=== PATIENT | female | born 1975 | race Caucasian/White ===

== ENCOUNTER 2016-11-28 09:37 | Outpatient (CLI) | payer OTHER | END 2016-11-28 09:38 | disposition home or self-care (01) | DX: Z00.00 Encounter for general adult medical examination without abnormal findings (principal) ==

== ENCOUNTER 2016-12-12 12:00 | Outpatient (CLI) | payer OTHER | END 2016-12-12 12:01 | disposition home or self-care (01) | DX: Z12.31 Encounter for screening mammogram for malignant neoplasm of breast (principal) ==

== ENCOUNTER 2017-02-01 14:38 | Outpatient (CLI) | payer OTHER | END 2017-02-01 14:39 | disposition home or self-care (01) | DX: R10.13 Epigastric pain (principal) ==

== ENCOUNTER 2017-02-03 23:26 | Observation (INO) | payer OTHER ==
[2017-02-03] MEDS ORDERED: MAG HYDROX/AL HYDROX/SIMETH 30 ML UDC PO STA (23:42)
[2017-02-03] MEDS ORDERED: LIDOCAINE VISCOUS 2% 15 ML UDC MM STA (23:42)
--- NOTE | 2017-02-03 23:44 | ED Physician Documentation ---
PD HPI ABD PAIN - Stated complaint Stated Complaint: ABD/SHOULDER PX - Chief complaint Chief Complaint: Abd Pain - History obtained from History obtained from: Patient - History of Present Illness Timing - onset: How many weeks ago (1) Timing - details: Gradual onset, Still present Quality: Sharp, Stabbing Location: RUQ, Epigastric Radiation: Right shoulder, Upper back Worsened by: Eating Associated symptoms: No: Fever, Nausea, Vomiting, Diarrhea, Constipation Similar symptoms before: Work up / diagnostics Recently seen: Clinic - Additional information Additional information: Patient is a 41 year old female with a history of muscle spasms who is presenting to the emergency department for epigastric pain. patient states that it has been going on for the last week. It gets worse after eating and is in her right upper quadrant and epigastric region. Patient's pmd thought it was an ulcer and started her on ranitidine and scheduled a follow up ultrasound for monday. patient stated that the pain was getting worse and she could not wait that long so she came in for evaluation. Review of Systems Constitutional: reports: Chills. denies: Fever Eyes: denies: Loss of vision, Decreased vision Ears: denies: Ear pain, Drainage/discharge Nose: denies: Rhinorrhea / runny nose, Congestion Throat: denies: Dental pain / toothache Cardiac: denies: Chest pain / pressure, Palpitations GI: reports: Abdominal Pain, Nausea. denies: Vomiting, Constipation, Diarrhea : denies: Dysuria, Frequency, Hesitancy Skin: denies: Rash, Lesions Musculoskeletal: reports: Back pain. denies: Neck pain, Extremity pain Neurologic: denies: Focal weakness, Numbness, Difficulty speaking Immunocompromised: denies: Immunocompromised PD PAST MEDICAL HISTORY - Past Medical History CHEMISTRY ASSOCIATE: Ovarian cysts - Present Medications Home Medications: Ambulatory Orders Medication Instructions Recorded Confirmed HYDROcod/ACETAM 5/325 [Vicodin 1 - 2 ea PO Q6H PRN #15 tablet 10/29/15 5/325] medroxyPROGESTERone [Depo-Provera] 150 mg IM ONCE 10/29/15 10/29/15 - Allergies Allergies/Adverse Reactions: Allergies Allergy/AdvReac Type Severity Reaction Status Date / Time No Known Drug Allergies Allergy Verified 02/04/17 00:26 - Social History Does the pt smoke?: Yes Smoking Status: Current every day smoker PD ED PE NORMAL - Vitals Vital signs reviewed: Yes - General General: Alert and oriented X 3, Well developed/nourished - HEENT HEENT: Atraumatic, PERRL - Neck Neck: Supple, no meningeal sign, No JVD - Cardiac Cardiac: RRR, No murmur - Respiratory Respiratory: No respiratory distress - Derm Derm: Normal color, Warm and dry, No rash - Extremities Extremities: No deformity, No tenderness to palpate, No edema - Neuro Neuro: Alert and oriented X 3, hoop rolls operator 2-12 intact, No motor deficit, No sensory deficit - Psych Psych: Normal mood, Normal affect PD ED PE EXPANDED - Abdomen Abdomen: Tender to palpation, Guarding, RUQ, Epigastric. No: Rebound - Back Back: Soft tissue tenderness (tenderness to palpation of right thoracic paraspinal muscles) Results - Vitals Vitals: Vital Signs - 24 hr 02/03/17 02/04/17 23:35 00:50 Temperature 37.2 C 36.7 C Heart Rate 72 74 Respiratory 18 16 Rate Blood Pressure 136/90 H 137/89 H O2 Saturation 100 100 Oxygen O2 Source Room air - Labs Labs: Laboratory Tests 02/04/17 02/04/17 00:00 00:00 WBC 13.3 H RBC 4.16 L Hgb 13.2 Hct 37.6 MCV 90.5 MCH 31.6 H MCHC 35.0 RDW 13.2 Plt Count 271 MPV 7.9 Neut # 7.3 H Lymph # 4.8 H Haakon # 0.9 Eos # 0.3 Baso # 0.1 Absolute Nucleated RBC 0.00 Nucleated RBCs 0.0 Sodium 136 Potassium 3.4 L Chloride 104 Carbon Dioxide 25 Anion Gap 7.0 BUN 14 Creatinine 0.8 Estimated GFR (MDRD) 79 L Glucose 103 H Calcium 9.1 Total Bilirubin 0.7 AST 19 ALT 26 Alkaline Phosphatase 39 L Total Protein 6.8 Albumin 4.1 Globulin 2.7 Albumin/Globulin Ratio 1.5 Lipase 19 L - Rads (name of study) abdominal ultrasound Radiology: Final report received (multiple stones, wall thickening at 10.7mm) PD MEDICAL DECISION MAKING - ED course Complexity details: reviewed results, re-evaluated patient, considered differential, d/w patient, d/w web development consultant ED course: Patient was seen and examined at bedside. labs were drawn and urine was collected. Patient was treated with viscous lidocaine and maalox. Patient was sent for imaging. When patient returned the results were reviewed. IV access was gained and patient was treated with morphine and ns bolus. crew caller surgeon , Dr. Andrade was contacted and the case was discussed with her. she requested zosyn and to place the patient under her service to go to the OR tomorrow. Patient responded well to the therapy and was admitted to the hosptial pain free in stable condition. Departure - Departure Disposition: ED Place in Observation Clinical Impression: Cholecystitis Condition: Good
[2017-02-03] MEDS ORDERED: LIDOCAINE VISCOUS 2% 15 ML UDC MM ONE (23:45)
[2017-02-03] MEDS ORDERED: MAG HYDROX/AL HYDROX/SIMETH 30 ML UDC ONE (23:45)
[2017-02-04 00:08] LABS: BASOPHILS # (AUTO) 0.1 10^3/uL (0.0-0.1); HGB - HEMOGLOBIN 13.2 g/dL (12.0-16.0); MONOCYTES # (AUTO) 0.9 10^3/uL (0.0-1.0); NEUTROPHILS # (AUTO) 7.3 10^3/uL (1.5-6.6); RED CELL DISTRIBUTION WIDTH 13.2 % (12.0-15.0)
[2017-02-04 00:10] LABS: BASOPHILS % (AUTO) 0.5 %; EOSINOPHILS # (AUTO) 0.3 10^3/uL (0.0-0.7); EOSINOPHILS % (AUTO) 1.9 %; HCT - HEMATOCRIT 37.6 % (37.0-47.0); LYMPHOCYTES # (AUTO) 4.8 10^3/uL (1.5-3.5); LYMPHOCYTES % (AUTO) 36.5 %; MEAN CORPUSCULAR HEMOGLOBIN 31.6 pg (27.0-31.0); MEAN CORPUSCULAR VOLUME 90.5 fL (81.0-99.0); MEAN PLATELET VOLUME 7.9 fL (7.9-10.8); MONOCYTES % (AUTO) 6.4 %; NEUTROPHILS % (AUTO) 54.7 %; RED BLOOD COUNT 4.16 10^6/uL (4.20-5.40); UNCORRECTED WHITE BLOOD COUNT 13.3 x10^3/uL; WHITE BLOOD COUNT 13.3 x10^3/uL (4.8-10.8)
[2017-02-04 00:34] LABS: ALBUMIN/GLOBULIN RATIO 1.5 (1.0-2.2); BILIRUBIN,TOTAL 0.7 mg/dL (0.2-1.0); CALCIUM 9.1 mg/dL (8.5-10.3); CREATININE 0.8 mg/dL (0.4-1.0); POTASSIUM 3.4 mmol/L (3.5-5.0); TOTAL PROTEIN 6.8 g/dL (6.7-8.2)
[2017-02-04] MEDS ORDERED: SODIUM CHLORIDE 0.9% 1,000 ML IV ONE ×2 (01:26→01:31)
[2017-02-04] MEDS ORDERED: MORPHINE 2 MG/ML SYRINGE IVP STA (01:26)
[2017-02-04] MEDS ORDERED: MORPHINE 2 MG/ML SYRINGE ONE (01:31)
--- NOTE | 2017-02-04 01:57 | Ultrasound Preliminary Report ---
Exam: US Abdomen Limited IMPRESSION: 1. Multiple stones in the gallbladder with wall thickening at 10.7 mm and focal gallbladder tendernes s. Findings may represent cholecystitis. 2. No biliary dilatation seen. 3. Possible fatty liver. [facility] SITE ID: [id number]
--- NOTE | 2017-02-04 01:59 | Ultrasound Report ---
EXAM: ABDOMEN ULTRASOUND LIMITED, RUQ EXAM DATE: 02/04/2017 01:20 AM. CLINICAL HISTORY: Right upper quadrant pain. COMPARISON: None. TECHNIQUE: Real-time scanning was performed with static images obtained. FINDINGS: Liver: Echogenic, possibly due to fatty infiltration. 14.9 cm. Main portal vein flow: Hepatopetal. Gallbladder: Multiple stones. Wall thickening measuring up to 10.7 mm. Tenderness over the gallbladde r. Biliary System: CBD measures 3.9 mm. No intrahepatic or extrahepatic ductal dilatation. Other: Right kidney measures 10.5 cm. No hydronephrosis is seen. IMPRESSION: 1. Multiple stones in the gallbladder with wall thickening at 10.7 mm and focal gallbladder tendernes s. Findings may represent cholecystitis. 2. No biliary dilatation seen. 3. Possible fatty liver. [facility] Referring Provider Line: [phone] SITE ID: [id number]
[2017-02-04] MEDS ORDERED: PIPERACILLIN/TAZOBACTAM 4.5 GM in SODIUM CHLORIDE 0.9% MINIBAG 100 ML IV STA (02:02)
[2017-02-04] MEDS ORDERED: ACETAMINOPHEN 325 MG TABLET PO PRN (02:05)
[2017-02-04] MEDS ORDERED: ONDANSETRON 4 MG/2 ML VIAL IVP PRN (02:05)
[2017-02-04] MEDS ORDERED: MORPHINE 2 MG/ML SYRINGE IVP PRN (02:05)
[2017-02-04] MEDS ORDERED: SODIUM CHLORIDE FLUSH 0.9% 10 ML SYRINGE IVP PRN (02:05)
[2017-02-04] MEDS ORDERED: SODIUM CHLORIDE 0.9% MINIBAG 100 ML IV ONE (02:11)
[2017-02-04] MEDS ORDERED: LACTATED RINGERS 1,000 ML IV SCH (03:00)
[2017-02-04 03:19] LABS: BILIRUBIN,URINE NEGATIVE (NEGATIVE)
[2017-02-04 03:35] LABS: UA w/ MICROSCOPIC CHARGE YES; UR CULTURE IF IND NOT INDICATED; WBC,URINE 0-3 /HPF (0-5)
[2017-02-04] MEDS: SODIUM CHLORIDE FLUSH 0.9% 10 ML SYRINGE IVP SCH ×2 (05:34→14:00)
[2017-02-04] MEDS ORDERED: AMPICILLIN/SULBACTAM 3 GM in SODIUM CHLORIDE 0.9% MINIBAG 100 ML IV SCH (06:00)
[2017-02-04] MEDS ORDERED: POLYETHYLENE GLYCOL 3350 17 GM PACKET PO SCH (09:00)
[2017-02-04] MEDS ORDERED: ACETAMINOPHEN/CODEINE 300 MG/30 MG TABLET PO PRN (10:31)
[2017-02-04 11:55] LABS: HCG UR QUAL NEGATIVE
[2017-02-04] MEDS ORDERED: LACTATED RINGERS 1,000 ML IV ONE ×4 (12:11→14:26)
[2017-02-04] MEDS ORDERED: BUPIVACAINE 0.5%-EPI 1:200000 PF 30 ML VIAL SUBQ ONE ×2 (12:45→13:33)
[2017-02-04] MEDS ORDERED: KETOROLAC 30 MG/ML VIAL IVP ONE (12:47)
[2017-02-04] MEDS ORDERED: ACETAMINOPHEN 1,000 MG/100 ML VIAL IV ONE (12:47)
[2017-02-04] MEDS ORDERED: MIDAZOLAM 2 MG/2 ML VIAL IVP ONE (12:47)
[2017-02-04] MEDS ORDERED: ONDANSETRON 4 MG/2 ML VIAL IVP ONE (12:47)
[2017-02-04] MEDS ORDERED: LIDOCAINE-MPF 2% 5 ML VIAL IM ONE (12:47)
[2017-02-04] MEDS ORDERED: PROPOFOL 200 MG/20 ML VIAL IVP ONE (12:47)
[2017-02-04] MEDS ORDERED: fentaNYL 100 MCG/2 ML VIAL IVP ONE (12:47)
[2017-02-04] MEDS ORDERED: DEXAMETHASONE 4 MG/ML VIAL IVP ONE (12:47)
[2017-02-04] MEDS ORDERED: NEOSTIGMINE 1 MG/1 ML 10 ML MDV IVP ONE (12:47)
[2017-02-04] MEDS ORDERED: GLYCOPYRROLATE 1 MG/5 ML VIAL IVP ONE (12:47)
[2017-02-04] MEDS ORDERED: SUCCINYLCHOLINE 200 MG/10 ML VIAL IVP ONE (12:47)
[2017-02-04] MEDS ORDERED: ROCURONIUM 50 MG/5 ML VIAL IVP ONE (12:47)
[2017-02-04] MEDS ORDERED: ONDANSETRON 4 MG/2 ML VIAL ONE (13:49)
[2017-02-04] MEDS: fentaNYL 100 MCG/2 ML VIAL ONE ×2 (13:49→14:23)
[2017-02-04] MEDS ORDERED: oxyCOD/ACETAMIN 5 MG/325 MG TABLET PO PRN (13:50)
[2017-02-04] MEDS: MIDAZOLAM 2 MG/2 ML VIAL ONE ×2 (13:53→14:24)
--- NOTE | 2017-02-04 14:01 | Discharge Plan ---
Discharge Plan Disposition: 01 Home, Self Care Condition: Good Diet: Regular Activity Restrictions: Activity as Tolerated Shower Restrictions: Yes (no shower for 24 hours) Driving Restrictions: Yes (not while on narcotics) Instruction Topics: Cholecystectomy Laparoscopic Dc No Smoking: If you smoke, Please STOP! Call for help. Follow-up with: Elvin Villar DO [Primary Care Provider] - KRYSTLE KEENAN MD [Provider Admit Priv/Credential] - 2 Weeks
[2017-02-04] MEDS ORDERED: HYDROmorphone 1 MG/ML SYRINGE ONE (14:19)
[2017-02-04 18:26] VITALS: BP 125/77
--- NOTE | 2017-02-05 02:09 | HISTORY & PHYSICAL EXAMINATION ---
DATE OF ADMISSION: 02/04/2017 REASON FOR ADMISSION: Acute cholecystitis. HISTORY OF PRESENT ILLNESS: This is a 41-year-old female who presented to the emergency department wi th a 1-week history of right upper quadrant and epigastric pain radiating to the back and shoulder. S he states that approximately 1 week ago, she was having mild symptoms and noticed that it was associa khari with food intake and nausea. These symptoms became increasingly worse. When she sought evaluation by her PCP on Monday, they prescribed a PPI and muscle relaxant, which she picked up on Monday, b ut this did not seem to help at all and the pain became much worse, causing her to present to the [facility] department. On evaluation in the emergency department, and an ultrasound of the abdomen was pe rformed, which demonstrated a thickened gallbladder wall and multiple stones within the gallbladder w ith a positive Rajan sign representing acute cholecystitis. There was no biliary dilatation seen. He r lab workup revealed a white blood cell count of 13.3 and normal LFTs and a normal lipase. She was a dmitted to the surgical service. PAST MEDICAL HISTORY: Ovarian cyst. PAST SURGICAL HISTORY: Laparoscopic removal of ovarian cyst. HOME MEDICATIONS: None. ALLERGIES TO MEDICATIONS: NO KNOWN DRUG ALLERGIES. SOCIAL HISTORY: The patient is . Her lives in [place] but is returning today. She smoke s 10 cigarettes per week and drinks 8-10 drinks per week. PHYSICAL EXAMINATION VITAL SIGNS: Temperature is 37.6, blood pressure 137/89, heart rate 74, respiratory rate 16, O2 is 10 0% on room air. GENERAL: The patient is awake, alert, oriented x3, in no acute distress. She is of average build with a BMI of 26. CARDIOVASCULAR: Regular rate and rhythm. CHEST: Clear to auscultation bilaterally with no rhonchi or wheezing. ABDOMEN: Soft and nondistended. She has slight tenderness to palpation in the right upper quadrant wi th no guarding or rigidity. EXTREMITIES: Nonedematous. LABORATORY VALUES: White blood cell count 13.3, hemoglobin 13.2, hematocrit 37.6, platelets 271. Sodi um 136, potassium 3.4, chloride 104, bicarbonate 25, BUN 14, creatinine 0.8, glucose 103, total bilir ubin 0.7, AST 19, ALT 26, alkaline phosphatase 39, lipase 19. ASSESSMENT: This is a 41-year-old female with acute cholecystitis. PLAN: The patient is admitted to the surgical service. She is placed on IV antibiotics including Unas yn. Her abdominal pain will be monitored, and if she shows improvement, she will go to the operating room for laparoscopic cholecystectomy. This procedure was explained to the patient in detail, includi ng the potential risks involved, including but not limited to bleeding, infection, and damage to intr aabdominal organs, specifically including the common bile duct. She understands all the above and agr ees to proceed. JOB #: [id number] EXT JOB #:[id number]
--- NOTE | 2017-02-05 02:20 | OPERATIVE REPORT ---
DATE OF SURGERY: 02/04/2017 00:00:00 PREOPERATIVE DIAGNOSIS: Acute cholecystitis. POSTOPERATIVE DIAGNOSIS: Acute cholecystitis. NAME OF PROCEDURE: Laparoscopic cholecystectomy, repair of umbilical hernia SURGEON: Blanche Andrade MD ANESTHESIOLOGIST: Neal Montoya CRNA INDICATION FOR PROCEDURE: This is a 41-year-old female who presented to the emergency department early this morning with right upper quadrant pain and ultrasonographic findings of acute cholecystitis. Her LFTs were noted to be normal. The patient was admitted to the surgical service and started on antibiotics and subsequently taken to the operating room for a laparoscopic cholecystectomy. FINDINGS: After obtaining informed consent from the patient, she was brought into the operating room and positioned on the operating table in the supine position, taking note of pressure points. She was intubated by Anesthesia. She was administered 2 grams of Ancef. SCD boots were applied. She was prepped and draped in the usual sterile fashion, and a time out was taken according to protocol. A 2 cm periumbilical incision was created and deepened down toward the umbilical stalk. A small umbilical hernia was noted. The umbilical sac was opened and its contents reduced. A very small umbilical opening was noted. A 5 mm port was inserted through this opening, and the abdominal cavity insufflated. A 5 mm incision was created in the epigastric region to the right of the midline and a 5 mm port inserted here. The umbilical port was then exchanged for a 12 mm port. Two additional 5 mm ports were then inserted in the patient's right lateral abdominal wall. The gallbladder was grasped and retracted over the dome of the liver. It was noted to be distended with a thickened wall. The base of the gallbladder was retracted medially, exposing the lateral attachments. These were carefully taken down with electrocautery, as the peritoneal attachments were quite thickened. I then worked my way medially, exposing the cystic duct. The cystic duct and artery were circumferentially dissected from fibrofatty tissue. A large Calot node was removed, as it was in the area of dissection. The critical view was then obtained. The cystic duct was clipped with 2 clips placed proximally, 1 distally , and divided. The cystic artery divided in a similar manner. The gallbladder was then removed off of the gallbladder fossa with electrocautery. The gallbladder attachments were noted to be quite friable, and there was some bleeding of the liver bed during this process. The gallbladder was placed in a specimen bag and removed through the umbilical port after having to extend it slightly. The Calot's node was also removed and sent off with the gallbladder as a specimen. The liver bed was inspected, and there was some bleeding in the liver bed. This was controlled with electrocautery. Suction irrigation was utilized to ensure that hemostasis had been achieved. The abdominal cavity was allowed to desufflate, and the ports were removed. The umbilical port site was closed with a running 0 Vicryl suture. The skin incisions were closed with 4-0 Monocryl. Then, 30 mL of local anesthetic was utilized. The patient was extubated and taken to recovery in stable condition. ESTIMATED BLOOD LOSS: 20 mL. SPECIMENS: Gallbladder and Calot node. COMPLICATIONS: None. JOB #: [id number] EXT JOB #:[id number] MTDD
== END 2017-02-04 18:25 | disposition home or self-care (01) ==
LOC: ED 23:26 → MS 02-04 02:05
PROVIDERS: ADMIT Surgery; ATTEND Surgery
PROC: 0FT44ZZ Resection of Gallbladder, Percutaneous Endoscopic Approach (ICD-10-PCS; principal; 2017-02-04 07:59)
DX: K80.10 Calculus of gallbladder with chronic cholecystitis without obstruction (principal); K42.9 Umbilical hernia without obstruction or gangrene; K21.9 Gastro-esophageal reflux disease without esophagitis; F17.200 Nicotine dependence, unspecified, uncomplicated; Z87.891 Personal history of nicotine dependence
CPT/HCPCS: 36415; 47562; 76705; 80053; 81001; 81025; 83690; 85025; 96361; 96365; 96375; 99234; 99283; 99285; A9270; J0131; J1170; J7120; 81003; 87086; 88304; 99284

== ENCOUNTER 2017-12-25 11:49 | Outpatient (CLI) | payer OTHER ==
--- NOTE | 2017-12-27 12:43 | Mammography Report ---
DIGITAL SCREENING MAMMOGRAM: CLINICAL INDICATION: A 42-year-old nulliparous patient, for screening. COMPARISON: 11/2016, 10/2015, 09/2014. TECHNIQUE: Routine CC and MLO projections were obtained of the breasts. Bilateral laterally exaggerated craniocaudal views. FINDINGS: Parenchymal tissue within both breasts is heterogeneously dense, which may lower the sensitivity of mammography; however, there are no dominant masses, suspicious microcalcifications, or secondary signs of malignancy. In comparison to the previous studies, there are no significant changes. ASSESSMENT: NO MAMMOGRAPHIC EVIDENCE OF MALIGNANCY. NO SIGNIFICANT INTERVAL CHANGES. RECOMMENDATION: Screening mammography is recommended annually. BIRADS category 1 - negative. STANDARD QUALIFYING STATEMENTS: 1. This examination was reviewed with the aid of Computed-Aided Detection (CAD). 2. A negative or benign imaging report should not delay biopsy if clinically suspicious findings are present. Consider surgical consultation if warranted. More than 5% of cancers are not identified by imaging. 3. Dense breasts may obscure an underlying neoplasm. TD: 12/27/2017 12:42
== END 2017-12-25 11:50 | disposition home or self-care (01) ==
LOC: DI.N 11:49
PROVIDERS: ATTEND Family Medicine
DX: Z12.31 Encounter for screening mammogram for malignant neoplasm of breast (principal)
CPT/HCPCS: 77067

== ENCOUNTER 2019-01-22 11:34 | Outpatient (CLI) | payer OTHER ==
--- NOTE | 2019-01-23 09:28 | Mammography Report ---
Reason: PT CALLED TO CANCEL STATING HER INS ISN'T COVERING Procedure Date: 01/22/2019 Accession Number: [id number] / [id number] Procedure: MGN - Screening Mammo Dig Bilat CPT Code: FULL RESULT: EXAM: Screening Mammo Dig Bilat DATE: 01/22/2019 11:59 AM CLINICAL HISTORY: Screening encounter. History of nulliparity. Family history of breast cancer in a paternal aunt at the age of 45. TECHNIQUE: (B) - Bilateral CC, laterally exaggerated CC, MLO views were obtained. COMPARISON: 12/25/2017 through 10/14/2014. PARENCHYMAL PATTERN: (D) - The breast(s) demonstrate(s) heterogeneously dense fibroglandular parenchyma. FINDINGS: There are no suspicious masses, calcifications, or areas of distortion. IMPRESSION: Negative examination. BI-RADS category 1. RECOMMENDATION: (ANNUAL) - Recommend routine annual screening mammography. BI-RADS CATEGORY: (1) - Negative. STANDARD QUALIFYING STATEMENTS: 1. This examination was not reviewed with the aid of Computer-Aided Detection (CAD). 2. A negative or benign imaging report should not preclude biopsy if clinically suspicious findings are present. 3. Dense breasts may obscure an underlying neoplasm. 4. This examination was reviewed without the aid of 3D breast imaging (tomosynthesis).
== END 2019-01-22 11:35 | disposition home or self-care (01) ==
LOC: DI.N 11:34
DX: Z12.31 Encounter for screening mammogram for malignant neoplasm of breast (principal); Z80.3 Family history of malignant neoplasm of breast
CPT/HCPCS: 77067

== ENCOUNTER 2019-01-25 08:00 | Outpatient (CLI) | payer OTHER ==
[2019-01-25 12:31] LABS: BASOPHILS % (AUTO) 0.6 %; EOSINOPHILS # (AUTO) 0.2 10^3/uL (0.0-0.7); EOSINOPHILS % (AUTO) 2.4 %; HGB - HEMOGLOBIN 13.4 g/dL (12.0-16.0); LYMPHOCYTES # (AUTO) 2.1 10^3/uL (1.5-3.5); LYMPHOCYTES % (AUTO) 29.8 %; MEAN CORPUSCULAR HGB CONC 33.5 g/dL (32.0-36.0); MEAN CORPUSCULAR VOLUME 92.5 fL (81.0-99.0); MEAN PLATELET VOLUME 8.3 fL (7.9-10.8); MONOCYTES # (AUTO) 0.5 10^3/uL (0.0-1.0); MONOCYTES % (AUTO) 7.1 %; NEUTROPHILS # (AUTO) 4.3 10^3/uL (1.5-6.6); NEUTROPHILS % (AUTO) 60.1 %; PLT - PLATELET COUNT 274 10^3/uL (130-450); RED BLOOD COUNT 4.33 10^6/uL (4.20-5.40); WHITE BLOOD COUNT 7.1 x10^3/uL (4.8-10.8)
[2019-01-25 12:56] LABS: ALBUMIN 3.9 g/dL (3.2-5.5); ALBUMIN/GLOBULIN RATIO 1.4 (1.0-2.2); ALKALINE PHOSPHATASE 36 IU/L (42-121); ALT ALANINE AMINOTRANSFERASE 17 IU/L (10-60); AST ASPARTATE AMINOTRANSFERASE 21 IU/L (10-42); BILIRUBIN,TOTAL 0.8 mg/dL (0.2-1.0); BUN - BLOOD UREA NITROGEN 11 mg/dL (6-20); CALCIUM 8.9 mg/dL (8.5-10.3); CARBON DIOXIDE - CO2 23 mmol/L (21-32); CHLORIDE 107 mmol/L (101-111); CHOL/HDL RATIO 3.1 (<4.4); CHOLESTEROL 176 mg/dL; CREATININE 0.7 mg/dL (0.4-1.0); GFR - MDRD 91 (>89); GLUCOSE 84 mg/dL (70-100); HDL CHOLESTEROL 57 mg/dL; LDL CHOLESTEROL,CALCULATED 106 mg/dL; LDL/HDL RATIO 1.9 (<4.4); SODIUM 135 mmol/L (135-145); TOTAL PROTEIN 6.7 g/dL (6.7-8.2); VLDL CHOLESTEROL 13 mg/dL
== END 2019-01-25 23:59 | disposition home or self-care (01) ==
LOC: LAB.R 08:00
PROVIDERS: ATTEND Family Medicine
DX: Z00.00 Encounter for general adult medical examination without abnormal findings (principal)
CPT/HCPCS: 36415; 80053; 80061; 83721; 84443; 85025

== ENCOUNTER 2020-04-08 09:24 | Outpatient (CLI) | payer OTHER ==
--- NOTE | 2020-04-10 09:07 | Mammography Report ---
Reason: ROUTINE MAMMO Procedure Date: 04/08/2020 Accession Number: [id number] / [id number] Procedure: MGN - Screening Mammo w/William CPT Code: Final Report FULL RESULT: BILATERAL DIGITAL SCREENING MAMMOGRAM 3D/2D: 04/08/2020 CLINICAL: Routine screening. Comparison is made to exams dated: 01/22/2019 mammogram, 12/25/2017 mammogram, 12/12/2016 mammogram, 11/03/2015 mammogram, and 10/14/2014 mammogram - [facility]. The tissue of both breasts is extremely dense, which lowers the sensitivity of mammography. No significant masses, calcifications, or other findings are seen in either breast. There has been no significant interval change. IMPRESSION: NEGATIVE There is no mammographic evidence of malignancy. A 1 year screening mammogram is recommended. This exam was interpreted at Station ID: [id number]. NOTE: For mammograms, a report in lay terms will be sent to the patient. Approximately 15% of breast malignancies will not be visualized mammographically. In the management of a palpable breast mass, a negative mammogram must not discourage biopsy of a clinically suspicious lesion. Electronically Signed By: Mason agosto/penrad:04/09/2020 17:58:01 ACR BI-RADS Category 1: Negative 3341F D -Extremely dense 1 Mammogram [id number] 1 year screening B
== END 2020-04-08 09:25 | disposition home or self-care (01) ==
LOC: DI.N 09:24
DX: Z12.31 Encounter for screening mammogram for malignant neoplasm of breast (principal)
CPT/HCPCS: 77063; 77067

== ENCOUNTER 2020-10-27 10:37 | Outpatient (CLI) | payer OTHER ==
--- NOTE | 2020-10-27 11:19 | XRAY Report ---
PROCEDURE: Chest 2 View X-Ray INDICATIONS: SHORTNESS OF BREATH TECHNIQUE: 2 view(s) of the chest. COMPARISON: 10.29.15 chest x-ray FINDINGS: Surgical changes and devices: None. Lungs and pleura: No pleural effusions or pneumothorax. Lungs are clear. Mediastinum: Mediastinal contours are normal. Heart size is normal. Bones and chest wall: No suspicious bony abnormalities. Soft tissues appear unremarkable. IMPRESSION: No acute process. Reviewed by: Regina Miguel MD on 10/27/2020 11:18 AM PST Approved by: Regina Miguel MD on 10/27/2020 11:18 AM [facility] Station ID: [id number]
== END 2020-10-27 23:59 | disposition home or self-care (01) ==
LOC: DI.N 10:37
PROVIDERS: ATTEND Family Medicine
DX: R07.89 Other chest pain (principal)

== ENCOUNTER 2021-05-03 14:56 | Outpatient (CLI) | payer OTHER ==
--- NOTE | 2021-05-04 14:35 | Mammography Report ---
BILATERAL DIGITAL SCREENING MAMMOGRAM 3D/2D: 05/03/2021 CLINICAL: Routine screening. Comparison is made to exams dated: 04/08/2020 mammogram, 01/22/2019 mammogram, 12/25/2017 mammogram, 12/12 mammogram, 11/03/2015 mammogram, and 10/14/2014 mammogram - [facility]. The ti ssue of both breasts is extremely dense, which lowers the sensitivity of mammography. There is an oval equal density asymmetry with an indistinct margin in the left breast anterior depth medial region seen on the craniocaudal view only. No other significant masses, calcifications, or other findings are seen in either breast. IMPRESSION: INCOMPLETE: NEEDS ADDITIONAL IMAGING EVALUATION The oval equal density asymmetry in the left breast is indeterminate. Mediolateral and spot compress ion views as well as additional views with possible ultrasound are recommended. This exam was interpreted at Station ID: [id number]. NOTE: For mammograms, a report in lay terms will be sent to the patient. Approximately 15% of breast malignancies will not be visualized mammographically. In the management of a palpable breast mass, a negative mammogram must not discourage biopsy of a clinically suspicious lesion. Electronically Signed By: Jimmy Reynolds M.D. ddp/penrad:05/03/2021 15:35:18 ACR BI-RADS Category 0: Incomplete 3340F PARENCHYMAL PATTERN: (VD) - The breast(s) demonstrate(s) extremely dense parenchyma, limiting the sen sitivity of mammography. BI-RADS CATEGORY: (0) - 0 Mammo and [place] [id number] Immediate follow-up LATERALITY: (B)
== END 2021-05-03 14:57 | disposition home or self-care (01) ==
LOC: DI.N 14:56
DX: Z12.31 Encounter for screening mammogram for malignant neoplasm of breast (principal); R92.8 Other abnormal and inconclusive findings on diagnostic imaging of breast

== ENCOUNTER 2021-07-16 09:44 | Outpatient (CLI) | payer OTHER ==
--- NOTE | 2021-07-19 08:21 | Mammography Report ---
UNILATERAL LEFT DIGITAL DIAGNOSTIC MAMMOGRAM 3D/2D: 07/16/2021 CLINICAL: Patient returns today to evaluate an asymmetry in the left breast. Comparison is made to exams dated: 05/03/2021 mammogram, 04/08/2020 mammogram, 03/02/2020 mammogram, 01/22/2019 mammogram, 12/25/2017 mammogram, and 12/12/2016 mammogram - [facility]. The ti ssue of left breast is extremely dense, which lowers the sensitivity of mammography. There is a possible asymmetry in the left breast anterior depth medial region seen on the craniocauda l view only. This is less prominent. No other significant masses or calcifications are seen in the breast. IMPRESSION: INCOMPLETE: NEEDS ADDITIONAL IMAGING EVALUATION The possible asymmetry in the left breast is indeterminate. A targeted ultrasound is recommended and will immediately follow. This exam was interpreted at Station ID: [id number]. NOTE: For mammograms, a report in lay terms will be sent to the patient. Approximately 15% of breast malignancies will not be visualized mammographically. In the management of a palpable breast mass, a negative mammogram must not discourage biopsy of a clinically suspicious lesion. Electronically Signed By: Mason Glover M.D. slc/:07/16/2021 10:29:59 ACR BI-RADS Category 0: Incomplete 3340F PARENCHYMAL PATTERN: (VD) - The breast(s) demonstrate(s) extremely dense parenchyma, limiting the sen sitivity of mammography. BI-RADS CATEGORY: (0) - 0 Ultrasound [id number] Immediate follow-up LATERALITY: (B)
--- NOTE | 2021-07-19 08:21 | Ultrasound Report ---
LIMITED ULTRASOUND OF LEFT BREAST: 07/16/2021 CLINICAL: Patient returns today to evaluate an asymmetry in the left breast. Comparison is made to exams dated: 07/16/2021 mammogram, 05/03/2021 mammogram, 04/08/2020 mammogram, mammogram, 01/22/2019 mammogram, and 12/25/2017 mammogram - [facility]. Real-time ultrasound of the left breast 9-12 o'clock region was performed. Lee scale images of the real-time examination were reviewed. No significant abnormalities were seen sonographically in the left breast in the region of possible a symmetry. IMPRESSION: NEGATIVE There is no sonographic evidence of malignancy. A 1 year screening mammogram is recommended. Exam findings were conveyed to the patient. This exam was interpreted at Station ID: [id number]. Electronically Signed By: Mason Glover M.D. slc/:07/16/2021 11:37:06 Ultrasound BI-RADS: 1 Negative BI-RADS CATEGORY: (1) - 1 RECOMMENDATION: (ANNUAL) - Recommend routine annual screening mammography. 20220717 1 year screening LATERALITY: (B)
== END 2021-07-16 09:45 | disposition home or self-care (01) ==
LOC: DI 09:44
PROVIDERS: ATTEND Family Medicine
DX: R92.8 Other abnormal and inconclusive findings on diagnostic imaging of breast (principal)

== ENCOUNTER 2022-06-08 07:38 | Outpatient (CLI) | payer OTHER ==
--- NOTE | 2022-06-08 21:50 | XRAY Report ---
PROCEDURE: Foot 3 View RT INDICATIONS: FOOT PAIN, RIGHT, PAIN IN RIGHT TOES TECHNIQUE: 3 views of the foot were acquired. COMPARISON: X-ray foot 08/24/2016 FINDINGS: Bones: No fractures or dislocations. No suspicious bony lesions. Faint area of lucency is noted wi thin the distal first phalanx unchanged from 2016. Hallux valgus deformity is present. Soft tissues: No tibiotalar joint effusion. Achilles tendon appears normal. IMPRESSION: Hallux valgus deformity. No visualized acute fracture or dislocation. However, occult injury cannot b e excluded. Recommend short interval imaging follow-up in 7-10 days as clinically indicated for addit ional evaluation. Reviewed by: Claudette Salinas MD on 06/08/2022 9:49 PM PDT Approved by: Claudette Salinas MD on 06/08/2022 9:49 PM PDT Station ID: [id number]
== END 2022-06-08 07:39 | disposition home or self-care (01) ==
LOC: DI.N 07:38
PROVIDERS: ATTEND Physician Assistant
DX: M20.11 Hallux valgus (acquired), right foot (principal)

== ENCOUNTER 2022-06-08 07:48 | Outpatient (CLI) | payer OTHER ==
[2022-06-08 12:27] LABS: BASOPHILS % (AUTO) 0.4 %; EOSINOPHILS # (AUTO) 0.1 10^3/uL (0.0-0.7); EOSINOPHILS % (AUTO) 1.9 %; HCT - HEMATOCRIT 41.6 % (37.0-47.0); HGB - HEMOGLOBIN 13.7 g/dL (12.0-16.0); LYMPHOCYTES # (AUTO) 2.9 10^3/uL (1.5-3.5); LYMPHOCYTES % (AUTO) 42.3 %; MEAN CORPUSCULAR HEMOGLOBIN 30.7 pg (27.0-31.0); MEAN CORPUSCULAR HGB CONC 32.9 g/dL (32.0-36.0); MEAN CORPUSCULAR VOLUME 93.3 fL (81.0-99.0); MEAN PLATELET VOLUME 9.8 fL (7.9-10.8); MONOCYTES # (AUTO) 0.5 10^3/uL (0.0-1.0); NEUTROPHILS # (AUTO) 3.3 10^3/uL (1.5-6.6); NEUTROPHILS % (AUTO) 48.3 %; PLT - PLATELET COUNT 325 10^3/uL (130-450); RED BLOOD COUNT 4.46 10^6/uL (4.20-5.40); RED CELL DISTRIBUTION WIDTH 13.3 % (12.0-15.0); WHITE BLOOD COUNT 6.8 x10^3/uL (4.8-10.8)
[2022-06-08 12:55] LABS: ALBUMIN 4.4 g/dL (3.2-5.5); ALBUMIN/GLOBULIN RATIO 1.5 (1.0-2.2); ALKALINE PHOSPHATASE 52 IU/L (42-121); ALT ALANINE AMINOTRANSFERASE 22 IU/L (10-60); AST ASPARTATE AMINOTRANSFERASE 19 IU/L (10-42); BILIRUBIN,TOTAL 0.6 mg/dL (0.2-1.0); BUN - BLOOD UREA NITROGEN 14 mg/dL (6-20); CALCIUM 9.7 mg/dL (8.5-10.3); CARBON DIOXIDE - CO2 28 mmol/L (21-32); CHLORIDE 104 mmol/L (101-111); CHOL/HDL RATIO 3.6 (<4.4); CHOLESTEROL 239 mg/dL; CREATININE 0.7 mg/dL (0.4-1.0); GFR - MDRD 90 (>89); GLUCOSE 98 mg/dL (70-100); HDL CHOLESTEROL 67 mg/dL; LDL CHOLESTEROL,CALCULATED 152 mg/dL; LDL/HDL RATIO 2.3 (<4.4); POTASSIUM 4.6 mmol/L (3.5-5.0); SODIUM 141 mmol/L (135-145); TOTAL PROTEIN 7.4 g/dL (6.7-8.2); TRIGLYCERIDES 98 mg/dL; VLDL CHOLESTEROL 20 mg/dL
[2022-06-08 13:00] LABS: THYROID STIMULATING HORMONE 1.66 uIU/mL (0.34-5.60)
[2022-06-08 13:29] LABS: FOLLICLE STIMULATING HORMONE 53.57 mIU/mL
== END 2022-06-08 07:49 | disposition home or self-care (01) ==
LOC: LAB.N 07:48
PROVIDERS: ATTEND Physician Assistant
DX: R23.2 Flushing (principal); N95.1 Menopausal and female climacteric states; Z13.9 Encounter for screening, unspecified; Z13.220 Encounter for screening for lipoid disorders; Z13.29 Encounter for screening for other suspected endocrine disorder
CPT/HCPCS: 36415; 80053; 80061; 83001; 83721; 84443; 85025

== ENCOUNTER 2022-07-11 11:37 | Outpatient (CLI) | payer OTHER ==
--- NOTE | 2022-07-13 09:32 | Mammography Report ---
BILATERAL DIGITAL SCREENING MAMMOGRAM 3D/2D: 07/11/2022 CLINICAL: Routine screening. Comparison is made to exams dated: 07/16/2021 mammogram, 05/03/2021 mammogram, 04/08/2020 mammogram, mammogram, 01/22/2019 mammogram, and 12/25/2017 mammogram - [facility]. Both breasts are heterogeneously dense, which may obscure small masses (category c / 51-75% glandular tissue). No significant masses, calcifications, or other findings are seen in either breast. There has been no significant interval change. IMPRESSION: NEGATIVE There is no mammographic evidence of malignancy. A 1 year screening mammogram is recommended. This exam was interpreted at Station ID: [id number]. NOTE: For mammograms, a report in lay terms will be sent to the patient. Approximately 15% of breast malignancies will not be visualized mammographically. In the management of a palpable breast mass, a negative mammogram must not discourage biopsy of a clinically suspicious lesion. Electronically Signed By: Mason Glover M.D. [facility]/penrad:07/11/2022 14:59:54 ACR BI-RADS Category 1: Negative 3341F PARENCHYMAL PATTERN: (D) - The breast(s) demonstrate(s) heterogeneously dense fibroglandular argelia singer. BI-RADS CATEGORY: (1) - 1 RECOMMENDATION: (ANNUAL) - Recommend routine annual screening mammography. [id number] 1 year screening LATERALITY: (B)
== END 2022-07-11 11:38 | disposition home or self-care (01) ==
LOC: DI.N 11:37
DX: Z12.31 Encounter for screening mammogram for malignant neoplasm of breast (principal)

== ENCOUNTER 2023-08-18 10:41 | Outpatient (CLI) | payer OTHER | END 2023-08-18 10:42 | disposition home or self-care (01) | LOC: DI.N 10:41 | PROVIDERS: ATTEND Physician Assistant Medical | DX: M25.572 Pain in left ankle and joints of left foot (principal); Z53.9 Procedure and treatment not carried out, unspecified reason ==

== ENCOUNTER 2023-08-18 10:51 | Outpatient (CLI) | payer OTHER ==
--- NOTE | 2023-08-18 13:40 | XRAY Report ---
PROCEDURE: Ankle 3 View LT INDICATIONS: LEFT ANKLE PAIN TECHNIQUE: 3 views of the ankle were acquired. COMPARISON: None. FINDINGS: Bones: Bone densities within the lateral joint space adjacent to the fibular tip are present. No oth er fracture or dislocations. Ankle mortise is normally aligned. No suspicious bony lesions. Soft tissues: No tibiotalar joint effusion. Achilles tendon appears normal. IMPRESSION: Tiny bone densities within the lateral joint space adjacent to the fibular tip suspiciou s for avulsion fracture. Reviewed by: Candido Espinoza on 08/18/2023 12:38 PM [facility] Approved by: Candido Espinoza on 08/18/2023 12:38 PM [facility] Station ID: [id number]
== END 2023-08-18 23:59 | disposition home or self-care (01) ==
LOC: DI.N 10:51
PROVIDERS: ATTEND Physician Assistant Medical
DX: M25.572 Pain in left ankle and joints of left foot (principal); R93.6 Abnormal findings on diagnostic imaging of limbs

== ENCOUNTER 2023-08-25 13:17 | Outpatient (CLI) | payer OTHER ==
--- NOTE | 2023-08-25 21:15 | XRAY Report ---
PROCEDURE: Ankle 3 View LT INDICATIONS: LEFT ANKLE PAIN TECHNIQUE: 3 views of the ankle were acquired. COMPARISON: None FINDINGS: Bones: No fractures or dislocations. Ankle mortise is normally aligned. No suspicious bony lesions . Soft tissues: Unremarkable without significant soft tissue swelling. No radiopaque foreign body. IMPRESSION: Unremarkable ankle radiographs Reviewed by: Damián Dubois MD on 08/25/2023 8:14 PM [facility] Approved by: Damián Dubois MD on 08/25/2023 8:14 PM [facility] Station ID: [id number]
== END 2023-08-25 13:18 | disposition home or self-care (01) ==
LOC: DI 13:17
PROVIDERS: ATTEND Physician Assistant Surgical
DX: M25.572 Pain in left ankle and joints of left foot (principal)

== ENCOUNTER 2023-08-29 14:57 | Outpatient (CLI) | payer OTHER ==
--- NOTE | 2023-08-29 21:19 | XRAY Report ---
PROCEDURE: Foot 3 View LT INDICATIONS: OTHER FRACTURE OF LEFT LOWER LEG, SEQUELA TECHNIQUE: 3 views of the foot were obtained. COMPARISON: August 25, 2023 FINDINGS: Bones: No fractures or dislocations. No suspicious bony lesions. Soft tissues: Unremarkable. No radiopaque foreign body. IMPRESSION: Unremarkable left foot radiographs. No radiographic evidence of fracture Reviewed by: Damián Dubois MD on 08/29/2023 8:18 PM [facility] Approved by: Damián Dubois MD on 08/29/2023 8:18 PM [place] Station ID: [id number]
== END 2023-08-29 14:58 | disposition home or self-care (01) ==
LOC: DI.N 14:57
PROVIDERS: ATTEND Physician Assistant Surgical
DX: M79.672 Pain in left foot (principal); S82.892S Other fracture of left lower leg, sequela